=== PATIENT | male | born 1970 | race Caucasian/White ===

== ENCOUNTER 2018-11-08 18:11 | Emergency (ER) | payer OTHER ==
[~2018-11-08] VITALS: Ht 175.3 cm; Wt 103.4 kg
[~2018-11-08 18:11] MED LIST: COZAAR100 MG; DESPEC-DM TABL1 EACH PO; ZANTAC300 MG PO
[2018-11-08] MEDS ORDERED: NORVASC10 MG (18:22)
== END 2018-11-08 22:29 | disposition home or self-care (01) ==
LOC: ER 18:11
DX: B34.9 Viral infection, unspecified (principal)